=== PATIENT | female | born 1955 | race Caucasian/White ===

== ENCOUNTER 2017-12-01 11:57 | Inpatient (IN) | payer MEDICAID ==
--- NOTE | 2017-12-01 12:45 | ED Physician Chart ---
ED Chief Complaint/HPI - Patient Information Date Seen:: 12/01/17 Time Seen:: 12:15 Chief Complaint:: Flank Pain History of Present Illness:: onset x 7 days of intermittent flank/back pain with dysuria; no report of trauma , H/As, neck pain, C/P, SOB, Abd. Pain, A/N/V/D/C, fever, chills, or bleeding Allergies:: Allergies Allergy/AdvReac Type Severity Reaction Status Date / Time No Known Allergies Allergy Verified 12/01/17 12:25 Vitals:: Vital Signs - 8 hr 12/01/17 12:15 Temp 98 F HR 69 RR 18 BP 133/64 O2 Sat % 95 Historian:: Patient, EMS Review:: Nurse's Note Reviewed, Old Chart Reviewed, EMS run form Reviewed ED Review of Systems - Review of Systems General/Constitutional: No fever, No chills, No weight loss, No weakness, No diaphoresis, No edema, No loss of appetite Skin: No skin lesions, No rash, No bruising Head: No headache, No light-headedness Eyes: No loss of vision, No pain, No diplopia ENT: No earache, No nasal drainage, No sore throat, No tinnitus Neck: No neck pain, No swelling, No thyromegaly, No stiffness, No mass noted Cardio Vascular: No chest pain, No palpitations, No PND, No orthopnea, No edema Pulmonary: No SOB, No cough, No sputum, No wheezing GI: No nausea, No vomiting, No diarrhea, No pain, No melena, No hematochezia, No constipation, No hematemesis G/U: No dysuria, No frequency, No hematuria, No nacturia 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: No vaginal discharge, No abnormal vaginal bleed, No contraction Musculoskeletal: No bone or joint pain, No back pain, No muscle pain Endocrine: No polyuria, No polydipsia Psychiatric: Prior psych history, No depression, No anxiety, No suicidal ideation, No homicidal ideation, Auditory hallucination, No visual hallucination Hematopoietic: No bruising, No lymphadenopathy Allergic/Immuno: No urticaria, No angioedema Neurological: No syncope, No focal symptoms, No weakness, No paresthesia, No headache, No seizure, No dizziness, Confusion, No vertigo ED Past Medical History - Past Medical History Obtainable: Yes Past Medical History: HTN, Thyroid disorder, Arthritis, Dementia Family History: HTN Social History: Non Smoker, No Alcohol, No Drug Use, , Care Facility Surgical History: other (Laparotomy/Abdominal Surgery) Psychiatricy History: Schizophrenia, Dementia Medication: Reviewed Family Medical History - Family Member Mother History Unknown: Yes ED Physical Exam - Physical Examination General/Constitutional: Awake, Well-developed, well-nourished, Alert, No distress, GCS 15, Non-toxic appearing, Ambulatory Head: Atraumatic Eyes: Lids, conjuctiva normal, PERRL, EOMI Skin: Nl inspection, No rash, No skin lesions, No ecchymosis, Well hydrated, No lymphadenopathy ENMT: External ears, nose nl, TM canals nl, Nasal exam nl, Lips, teeth, gums nl , Oropharynx nl, Tonsils nl Neck: Nontender, Full ROM w/o pain, No JVD, No nuchal rigidity, No bruit, No mass, No stridor Respiratory: Nl effort/Exclusion, Clear to Auscultation, No Wheeze/Rhonchi/Rales Cardio Vascular: RRR, No murmur, gallop, rubs, NL S1 S2, Carotid/Femoral/Distal pulses equal bilaterally GI: No tenderness/rebounding/guarding, No organomegaly, No hernia, Normal BS's, Nondistended, No mass/bruits, No McBurney tenderness, Rectum exam nl Other GI comments:: no pulsatile masses : No CVA tenderness Extremities: No tenderness or effusion, Full ROM, normal strength in all extremities, No edema, Normal digits & nails Neuro/Psych: Alert/oriented, DTR's symmetric, Normal sensory exam, Normal motor strength, Judgement/insight normal, Mood normal, Normal gait, No focal deficits Misc: Normal back, No paraspinal tenderness ED Labs/Radiology/EKG Results - Lab Results Comments:: Na+ 132; K+: 3.3; U/A: + WBCs; + Bacteria - EKG Interpretations EKG Time:: 12:41 Rate & Rhythm: 66; NSR Comments:: non-specific st-t changes ED Septic Shock - . Is Septic Shock (SBP<90, OR Lactate>4 mmol\L) present?: No - <6hrs of presentation: Vital Signs: Vital Signs - 8 hr 12/01/17 12:15 Temp 98 F HR 69 RR 18 BP 133/64 O2 Sat % 95 ED Reassessment (Disposition) - Reassessment Reassessment Condition:: Improved - Diagnosis Diagnosis:: UTI; Flank Pain; Hyponatremia; Hypokalemia; Dehydration; Back Pain - Aftercare/Follow up Instructions Aftercare/Follow-Up Instructions:: Counseled pt regarding lab results/diagnosis & need follow up, Counseled pt & family regarding lab results/diagnosis & need follow up - Patient Disposition Discharge/Transfer:: Acute Care w/in this hosp Accepting Physician:: Dr. De Los Santos Time Called:: 1400 Time Responded:: 14:00 Admitted to:: Med/Surg Spoke to:: Dr. De Los Santos Admitting Medical Physician:: Dr. De Los Santos Condition at Disposition:: Stable, Improved
[2017-12-01 13:23] LABS: % BASOPHILS 1.1 % (0.0-2.0); % EOSINOPHILS 6.2 % (0.0-5.0); % LYMPHOCYTES 19.8 % (20.0-50.0); % MONOCYTES 8.7 % (2.0-10.0); % NEUTROPHILS 64.2 % (40.0-80.0); BASOPHILE ABSOLUTE 0.1 Th/cumm (0-0.2); EOSINOPHILE ABSOLUTE 0.5 Th/cmm (0.1-0.4); HEMATOCRIT 36.8 % (41.0-60); HEMOGLOBIN 12.2 gm/dL (12-16); INR 1.12 (0.5-1.4); LYMPHOCYTE ABSOLUTE 1.5 Th/cmm (1.5-3.0); MEAN CELL VOLUME 84.1 fl (81-100); MEAN CORPUSCULAR HGB CONC 33.2 pg (28.0-36.0); MEAN PLATELET VOLUME 7.1 fl; MONOCYTE ABSOLUTE 0.6 Th/cmm (0.3-1.0); NEUTROPHILE ABSOLUTE 4.7 Th/cmm (1.8-8.0); PLATELET COUNT 269 Th/cmm (150-400); PROTHROMBIN TIME (TEST) 11.7 SECONDS (9.5-11.5); RED BLOOD COUNT 4.37 Mil/cmm (3.80-5.10); WHITE BLOOD COUNT 7.4 Th/cmm (4.8-10.8)
[2017-12-01 13:29] LABS: ALB/GLOB RATIO 1.1 (1.0-1.8); ALBUMIN 3.9 gm/dL (3.7-5.3); ALKALINE PHOSPHATASE 134 U/L (34-104); ANION GAP 9.9 (7.0-16.0); BILIRUBIN,TOTAL 0.8 mg/dL (0.3-1.0); BUN - UREA NITROGEN 10 mg/dL (7-25); CALCIUM SERUM 9.7 mg/dL (8.6-10.3); CARBON DIOXIDE 26.4 mEq/L (21.0-31.0); CHLORIDE 99 mEq/L (98-107); CREATININE - SERUM 0.7 mg/dL (0.6-1.2); CREATININE KINASE 132 U/L (30-223); GFR AFRICAN-AMERICAN > 60.0 ml/min (>90); GFR NON AFRICAN-AMERICAN > 60.0 ml/min; GLUCOSE 99 mg/dL (70-105); POTASSIUM SERUM 3.3 mEq/L (3.5-5.1); SGOT 19 U/L (13-39); SGPT/ALT 10 U/L (7-52); SODIUM SERUM 132 mEq/L (136-145); TOTAL PROTEIN,SERUM 7.5 gm/dL (6.0-8.3)
[2017-12-01 13:33] LABS: TROP I < 0.01 ng/mL (0.01-0.05)
[2017-12-01] MEDS ORDERED: Potassium Chloride 20 mEq ER Tab PO ONE ×2 (14:03→14:29)
[2017-12-01 14:19] LABS: URINE MICROSCOPIC INDICATED? YES; URINE SOURCE MIDSTREAM
[2017-12-01] MEDS ORDERED: cefTRIAXone 1 GM in Sodium Chloride 0.9% 50 ML IV ONE (14:21)
[2017-12-01 14:22] LABS: URINE BILIRUBIN NEGATIVE (NEGATIVE); URINE BLOOD NEGATIVE (NEGATIVE); URINE GLUCOSE (UA) NEGATIVE (NEGATIVE); URINE KETONE NEGATIVE (NEGATIVE); URINE LEUKOCYTE ESTERASE NEGATIVE (NEGATIVE); URINE NITRATE NEGATIVE (NEGATIVE); URINE PROTEIN NEGATIVE (NEGATIVE); URINE UROBILINOGEN 0.2 E.U./dL (0.2 - 1.0)
[2017-12-01 14:40] LABS: URINE CLARITY CLEAR (CLEAR); URINE COLOR YELLOW
[2017-12-01 14:43] LABS: URINE BACTERIA FEW /hpf (NONE SEEN); URINE EPITHELIAL CELLS MODERATE /lpf (FEW); URINE RBC 0-2 /hpf (0-5)
[2017-12-01 19:36] VITALS: BP 125/82
[2017-12-01] MEDS ORDERED: Morphine Sulfate 2 mg/mL 1mL Syr IVP PRN ×2 (19:50→19:51)
--- NOTE | 2017-12-01 22:27 | History & Physical ---
ADMIT DATE: 12/01/2017 This patient was admitted from the Emergency Room for a history of intermittent flank pain, back pain, dysuria with UTI and possible sepsis. The patient had , the patient has about this for 7 days, complaining of body aches and pains and having fever and chills. Nurse's notes were reviewed. Old chart was reviewed and patient basically has some fever and also dysuria. All other symptom review was negative. PAST MEDICAL HISTORY: The patient has history of hypertension, thyroid disorder, arthritis and the patient also has history of dementia. The patient has been forgetful. PHYSICAL EXAMINATION: HEENT: Normocephalic. Pupils equal, reactive to light. NECK: Supple, nontender. LUNGS: Clear. CARDIOVASCULAR SYSTEM: S1, S2 heard. ABDOMEN: Soft. Bowel sounds are heard. CENTRAL NERVOUS SYSTEM: Grossly normal. LABORATORY DATA: The patient's sodium was low at 132, WBC was there, bacteria was there. DIAGNOSES: Urinary tract infection, sepsis, flank pain, hyponatremia, hypokalemia, dehydration, acute kidney injury, history of back pain, history of hypertension, history of thyroid disorder, arthritis, dementia. PLAN: The patient is being admitted. IV antibiotic given and I will have Dr. Whitlock see the patient as well as her Neurology see the patient. I will follow the patient. JOB# [id number]
[2017-12-02 07:29] LABS: ANION GAP 10.1 (7.0-16.0); BUN - UREA NITROGEN 15 mg/dL (7-25); CALCIUM SERUM 8.7 mg/dL (8.6-10.3); CARBON DIOXIDE 23.6 mEq/L (21.0-31.0); CHLORIDE 101 mEq/L (98-107); CREATININE - SERUM 0.7 mg/dL (0.6-1.2); GFR AFRICAN-AMERICAN > 60.0 ml/min (>90); GFR NON AFRICAN-AMERICAN > 60.0 ml/min; GLUCOSE 87 mg/dL (70-105); POTASSIUM SERUM 3.7 mEq/L (3.5-5.1); SODIUM SERUM 131 mEq/L (136-145)
[2017-12-02 07:38] LABS: % BASOPHILS 1.8 % (0.0-2.0); % EOSINOPHILS 8.9 % (0.0-5.0); % LYMPHOCYTES 25.5 % (20.0-50.0); % MONOCYTES 10.1 % (2.0-10.0); % NEUTROPHILS 53.7 % (40.0-80.0); BASOPHILE ABSOLUTE 0.1 Th/cumm (0-0.2); EOSINOPHILE ABSOLUTE 0.5 Th/cmm (0.1-0.4); HEMOGLOBIN 10.6 gm/dL (12-16); LYMPHOCYTE ABSOLUTE 1.6 Th/cmm (1.5-3.0); MEAN CORPUSCULAR HEMOGLOBIN 27.6 pg (27.0-31.0); MEAN CORPUSCULAR HGB CONC 33.2 pg (28.0-36.0); MEAN PLATELET VOLUME 7.5 fl; MONOCYTE ABSOLUTE 0.6 Th/cmm (0.3-1.0); NEUTROPHILE ABSOLUTE 3.3 Th/cmm (1.8-8.0); PLATELET COUNT 234 Th/cmm (150-400); RED BLOOD COUNT 3.86 Mil/cmm (3.80-5.10); RED CELL DISTRIBUTION WIDTH 14.8 % (11.5-20.0); WHITE BLOOD COUNT 6.1 Th/cmm (4.8-10.8)
[2017-12-02] MEDS: Levothyroxine 0.05 Mg Tab PO SCH (08:26)
--- NOTE | 2017-12-02 15:46 | General Progress Note ---
Subjective - Review of Systems Service Date: 12/02/17 Subjective: wake and alert stable denies pain Objective - Results Result Diagrams: 12/02/17 05:45 12/02/17 05:45 Recent Labs: Laboratory Last Values WBC 6.1 Th/cmm (4.8-10.8) 12/02/17 05:45 RBC 3.86 Mil/cmm (3.80-5.10) 12/02/17 05:45 Hgb 10.6 gm/dL (12-16) L 12/02/17 05:45 Hct 32.0 % (41.0-60) L 12/02/17 05:45 MCV 83.0 fl (81-100) 12/02/17 05:45 MCH 27.6 pg (27.0-31.0) 12/02/17 05:45 MCHC Differential 33.2 pg (28.0-36.0) 12/02/17 05:45 RDW 14.8 % (11.5-20.0) 12/02/17 05:45 Plt Count 234 Th/cmm (150-400) 12/02/17 05:45 MPV 7.5 fl 12/02/17 05:45 Neutrophils % 53.7 % (40.0-80.0) 12/02/17 05:45 Lymphocytes % 25.5 % (20.0-50.0) 12/02/17 05:45 Monocytes % 10.1 % (2.0-10.0) H 12/02/17 05:45 Eosinophils % 8.9 % (0.0-5.0) H 12/02/17 05:45 Basophils % 1.8 % (0.0-2.0) 12/02/17 05:45 PT 11.7 SECONDS (9.5-11.5) H 12/01/17 13:00 INR 1.12 (0.5-1.4) 12/01/17 13:00 PTT (Actin FS) 23.9 SECONDS (26.0-38.0) L 12/01/17 13:00 Sodium 131 mEq/L (136-145) L 12/02/17 05:45 Potassium 3.7 mEq/L (3.5-5.1) 12/02/17 05:45 Chloride 101 mEq/L (98-107) 12/02/17 05:45 Carbon Dioxide 23.6 mEq/L (21.0-31.0) 12/02/17 05:45 Anion Gap 10.1 (7.0-16.0) 12/02/17 05:45 BUN 15 mg/dL (7-25) 12/02/17 05:45 Creatinine 0.7 mg/dL (0.6-1.2) 12/02/17 05:45 Est GFR ( Amer) > 60.0 ml/min (>90) 12/02/17 05:45 Est GFR (Non-Af Amer) > 60.0 ml/min 12/02/17 05:45 BUN/Creatinine Ratio 21.4 12/02/17 05:45 Glucose 87 mg/dL (70-105) 12/02/17 05:45 Whole Bld Lactic Acid 1.44 mmol/L (0.60-1.99) 12/01/17 13:00 Calcium 8.7 mg/dL (8.6-10.3) 12/02/17 05:45 Total Bilirubin 0.8 mg/dL (0.3-1.0) 12/01/17 13:00 AST 19 U/L (13-39) 12/01/17 13:00 ALT 10 U/L (7-52) 12/01/17 13:00 Alkaline Phosphatase 134 U/L (34-104) H 12/01/17 13:00 Creatine Kinase 132 U/L (30-223) 12/01/17 13:00 Troponin I < 0.01 ng/mL (0.01-0.05) L 12/01/17 13:00 Total Protein 7.5 gm/dL (6.0-8.3) 12/01/17 13:00 Albumin 3.9 gm/dL (3.7-5.3) 12/01/17 13:00 Globulin 3.6 gm/dL 12/01/17 13:00 Albumin/Globulin Ratio 1.1 (1.0-1.8) 12/01/17 13:00 Urine Source MIDSTREAM 12/01/17 14:10 Urine Color YELLOW 12/01/17 14:10 Urine Clarity CLEAR (CLEAR) 12/01/17 14:10 Urine pH 7.0 (4.6 - 8.0) 12/01/17 14:10 Ur Specific [place] 1.015 (1.005-1.030) 12/01/17 14:10 Urine Protein NEGATIVE mg/dL (NEGATIVE) 12/01/17 14:10 Urine Glucose (UA) NEGATIVE mg/dL (NEGATIVE) 12/01/17 14:10 Urine Ketones NEGATIVE mg/dL (NEGATIVE) 12/01/17 14:10 Urine Blood NEGATIVE (NEGATIVE) 12/01/17 14:10 Urine Nitrate NEGATIVE (NEGATIVE) 12/01/17 14:10 Urine Bilirubin NEGATIVE (NEGATIVE) 12/01/17 14:10 Urine Urobilinogen 0.2 E.U./dL (0.2 - 1.0) 12/01/17 14:10 Ur Leukocyte Esterase NEGATIVE (NEGATIVE) 12/01/17 14:10 Urine RBC 0-2 /hpf (0-5) 12/01/17 14:10 Urine WBC 2-5 /hpf (0-5) 12/01/17 14:10 Ur Epithelial Cells MODERATE /lpf (FEW) 12/01/17 14:10 Urine Bacteria FEW /hpf (NONE SEEN) 12/01/17 14:10 - Physical Exam Vitals and I&O: Vital Signs Temp 98.3 F 12/02/17 11:38 Pulse 72 12/02/17 11:38 Resp 18 12/02/17 11:38 BP 132/59 12/02/17 11:38 Pulse Ox 97 12/02/17 11:38 Intake & Output 12/01/17 12/02/17 12/02/17 18:59 06:59 18:59 Intake Total 150 400 Balance 150 400 Weight (lbs) 79.379 kg 78.925 kg Intake: Oral 150 400 Other: # Voids 3 1 # Bowel Movements 0 1 Weight Source Patient stated Patient stated Active Medications: Current Medications Calcium Carbonate (Os-Curt) 500 mg PO DAILY [facility] Stop: 01/31/18 08:59 Last Admin: 12/02/17 08:26 Dose: 500 mg Carbamazepine (Tegretol) 200 mg PO BID [facility]; Protocol Stop: 01/31/18 08:59 Last Admin: 12/02/17 08:26 Dose: 200 mg Galantamine Hydrobromide (Razadyne) 8 mg PO BID [facility] Stop: 01/31/18 08:59 Last Admin: 12/02/17 08:28 Dose: 8 mg Hydrochlorothiazide (Hctz) 25 mg PO DAILY [facility] Stop: 01/31/18 08:59 Last Admin: 12/02/17 08:25 Dose: Not Given Levothyroxine Sodium (Synthroid) 0.05 mg PO DAILY [facility] Stop: 01/31/18 08:59 Last Admin: 12/02/17 08:26 Dose: 0.05 mg Morphine Sulfate (Morphine) 1 mg IVP Q4HR PRN PRN Reason: Pain (Moderate) Stop: 01/30/18 19:49 Last Admin: 12/01/17 20:39 Dose: 1 mg Morphine Sulfate (Morphine) 2 mg IVP Q4HR PRN PRN Reason: Pain (Severe) Stop: 01/30/18 19:50 Ondansetron HCl (Zofran) 4 mg IV Q6H PRN PRN Reason: Nausea / Vomiting Stop: 01/30/18 19:50 Quetiapine Fumarate (Seroquel) 25 mg PO HS [facility]; Protocol Stop: 01/30/18 20:59 Last Admin: 12/01/17 20:39 Dose: 25 mg General: Alert, No acute distress Cardiovascular: Regular rate, Normal S1, Normal S2 Abdomen: Bowel sounds - Procedures Procedures: Procedures Procedure Code Date INJECT/INFUSE NEC 99.29 02/02/11 Assessment/Plan - Assessment Assessment: dehydration uti back pain flank pain hypokalemia - Plan Plan: monitor vitals cpm Nutritional Asmnt/Malnutr-PDOC - Dietary Evaluation Malnutrition Findings (Please click <Entered> for more info): Nutritional Asmnt/Malnutrition Start: 12/02/17 13: 43 Text: Status: Complete Freq: Protocol: Document 12/02/17 13:43 LCHENG (Rec: 12/02/17 13:51 [email or web address]) Nutritional Asmnt/Malnutrition Patient General Information Nutritional Screening High Risk Diagnosis FTT, UTI Pertinent Medical Hx/Surgical Hx THN, thyroid disorder, arthritis, dementia, schizophrenia, abdominal surgery Subjective Information Pt seen sitting up in bed at time of visit, eating well be herself. Pt stated appetite is fine. Current Diet Order/ Nutrition Support regular Pertinent Medications os-curt, synthroid, seroquel Pertinent Labs 12/02 Na 131 Nutritional Hx/Data Height 1.55 m Height (Calculated Centimeters) 154.9 Current Weight (lbs) 78.925 kg Weight (Calculated Kilograms) 78.9 Weight (Calculated Grams) 86543.1 [place] Body Weight 105 Body Mass Index (BMI) 32.8 Weight Status Obese GI Symptoms GI Symptoms None Last BM 6/7 Difficult in: None Skin Integrity/Comment: intact Estimated Nutritional Goals BEE in Kcals: Adj wt of IBW Calories/Kcals/Kg 25-30 Kcals Calculated 4025-4896 Protein: Adj wt of IBW Protein g/k Protein Calculated 55 Fluid: ml 1375-1650ml (1ml/kcal) Nutritional Problem 1. Problem Problem altered nutrition related lab Etiology electrolyte imbalance Signs/Symptoms: Na 131-132 Malnutrition Alert Is there a minimum of two criteria No selected? Query Text:Check all the applicable criteria. A minimum of two criteria are recommended for diagnosis of either severe or non-severe malnutrition. Malnutrition Related to Morbid Obesity Malnutrition related to morbid obesity No Intervention/Recommendation Comments 1. Continue with regular diet as ordered. 2. Monitor PO intake, wt, labs and skin integrity 3. F/U as moderate risk in 3-5 days, 12/05-12/07, PO check 12/04 Expected Outcomes/Goals Expected Outcomes/Goals 1. PO intake to meet at least 75% of nutritional needs. 2. Wt stability, skin to remain intact, labs to approach WNL.
--- NOTE | 2017-12-03 02:28 | Consultation ---
DATE OF CONSULTATION: 12/02/2017 INFECTIOUS DISEASE CONSULTATION REFERRING PHYSICIAN: Dr. De Los Santos. REASON FOR CONSULTATION: UTI. HISTORY OF PRESENT ILLNESS: The patient is a 62-year-old female with a past medical history of hypertension, hypothyroidism, arthritis and dementia, brought to the ER for dysuria and flank pain. The patient has some fever and chills at the facility, but on the record, the patient has no fever at this facility. On initial evaluation, the patient's temperature was 98 degree Fahrenheit and WBC count was 7400. Urinalysis showed wbcs 2-5 and few bacteria. Urine culture showed mixed vaginal evan. Blood culture 2 sets are negative. Rocephin 1 mg was given in the ER. PAST MEDICAL HISTORY: As mentioned above, hypertension, hypothyroidism, arthritis, dementia. FAMILY HISTORY: Positive for hypertension. SOCIAL HISTORY: The patient lives at nursing facility, . No smoking, no alcohol, no drug use. PAST SURGICAL HISTORY: Includes laparotomy, abdominal surgery. PSYCHIATRIC HISTORY: Schizophrenia, dementia. MEDICATIONS: As per medication reconciliation sheet. ALLERGIES: NKDA. FAMILY HISTORY: Hypertension. Mother had hypertension. REVIEW OF SYSTEMS: GENERAL: The patient has no fever, no chills at this facility. HENT: No diplopia, no photophobia, no sore throat. RESPIRATORY: No cough, no shortness of breath. CARDIOVASCULAR: No chest pain or palpitation. GASTROINTESTINAL: No nausea, no vomiting, no diarrhea, no constipation. GENITOURINARY: The patient had dysuria, no hematuria. CENTRAL NERVOUS SYSTEM: No headache, no dizziness, no gross focal weakness. SKIN: Has no rash, no hives. PHYSICAL EXAMINATION: VITAL SIGNS: Shows temperature 97.7 degrees Fahrenheit, pulse 78, respirations 20, blood pressure 137/63. GENERAL: The patient is comfortable, lying in the bed, obese. HEENT: Head is normocephalic, atraumatic. Oral cavity moist, pink tongue. Eyes: No pallor, no icterus. Pupils PERRLA, EOMI. NECK: Supple, no JVD, no bruit. Trachea in midline. CHEST: Bilateral breath sounds. No crackles or wheezing. HEART: S1, S2 within normal limits. Regular rhythm. No murmur or gallop. ABDOMEN: Soft, nontender, nondistended. Bowel sounds present. EXTREMITIES: No cyanosis, no clubbing, no edema. NEUROLOGIC: Alert, awake, oriented x 3. LABORATORY DATA: Current lab shows WBC count is 6100, hemoglobin 10.6, hematocrit 32, platelets are 234,000, neutrophils 53.7%. INR is 1.12. Sodium is 131, potassium 3.7, chloride 101, bicarb is 24, BUN is 15, creatinine 0.7, glucose is 87. Urinalysis showed negative nitrite, negative leukocyte esterase, wbcs 2-5, few bacteria. Urine culture shows mixed vaginal evan and blood culture 2 sets are negative. IMPRESSION: 1. Suspected urinary tract infection. 2. Hyponatremia. 3. Dehydration. 4. Hypothyroidism. 5. Hypertension. RECOMMENDATIONS: We will give ciprofloxacin 250 mg p.o. twice a day for 5 days. JOB# [id number]
--- NOTE | 2017-12-03 04:10 | Consultation ---
DATE OF CONSULTATION: 12/02/2017 REASON FOR CONSULTATION: Failure to thrive. HISTORY OF PRESENT ILLNESS: This consult was obtained through the courtesy of Dr. De Los Santos for this 62-year-old with history of hypertension, hypothyroidism, arthritis, and mild dementia, admitted to the hospital for back pain, flank pain, UTI, and sepsis, now has not been eating. GI consult was called in for further evaluation. The patient is very vague in her symptoms. She does not seem she is fully aware of what is going on. She denies any abdominal pain, nausea, vomiting, diarrhea, or constipation ____ she does not know for what. At this time, she is eating okay. She ate most of her meals last night and today, there is no abdominal pain, nausea, or vomiting. PAST MEDICAL HISTORY: Hypertension, hypothyroidism, arthritis, and dementia. PAST SURGICAL HISTORY: A big abdominal scar in the midline, nature of which is not known. SOCIAL HISTORY: Nonsmoker. No alcoholic or IV drug abuser. FAMILY HISTORY: Noncontributory. ALLERGIES: No known drug allergies. MEDICATIONS: Calcium, Tegretol, Razadyne, hydrochlorothiazide, Synthroid, morphine, Zofran, and Seroquel. REVIEW OF SYSTEMS: As stated above. No weight loss, nausea, vomiting, diarrhea, constipation, or bleeding. PHYSICAL EXAMINATION: GENERAL: The patient is awake, oriented to self and place, and in no acute distress. VITAL SIGNS: Blood pressure is 130/59, heart rate 72, respiratory rate 18, and temperature is 98.3. HEAD AND NECK: Pupils are reactive to light and accommodation. Extraocular muscles could not be tested. Sclerae are anicteric. Conjunctivae not pale. Oral cavity, no lesion. NECK: Supple. CHEST: Good air entry. LUNGS: Clear to auscultation. CARDIOVASCULAR: Regular rate and rhythm. No murmur or gallop. ABDOMEN: Soft, positive bowel sounds, and not tender. EXTREMITIES: Lower extremities, no edema. CENTRAL NERVOUS SYSTEM: Nonfocal. LABORATORY DATA: H and H are 10.6 and 32.0 with the platelets of 234. Liver enzymes are normal. IMPRESSION: A 62-year-old with urinary tract infection, now with a possibility of decreased oral intake. ASSESSMENT AND PLAN: 1. Decreased oral intake, has resolved, seems to have been transient, most likely was related to infection or sepsis. At this time, the patient is eating okay, so there is no reason to do any workup, so continue to encourage oral intake and continue treatment for urinary tract infection and then further recommendations to follow. 2. Mild anemia, most likely nonspecific. We will monitor and watch for now. Other medical problems such as hypertension, hypothyroidism, dementia, etc., as per Dr. De Los Santos. Thank you, Filiberto for allowing me to participate in the care of this patient. If you have any further questions, please let me know. JOB# [id number]
[2017-12-03] MEDS: Levothyroxine 0.05 Mg Tab PO SCH (10:31)
--- NOTE | 2017-12-03 11:40 | GI Progress Note ---
Subjective - Review of Systems Service Date: 12/03/17 Events since last encounter: No events Subjective: No abdominal pain or N/V Eating OK Objective - Results Result Diagrams: 12/02/17 05:45 12/02/17 05:45 Recent Labs: Laboratory Last Values WBC 6.1 Th/cmm (4.8-10.8) 12/02/17 05:45 RBC 3.86 Mil/cmm (3.80-5.10) 12/02/17 05:45 Hgb 10.6 gm/dL (12-16) L 12/02/17 05:45 Hct 32.0 % (41.0-60) L 12/02/17 05:45 MCV 83.0 fl (81-100) 12/02/17 05:45 MCH 27.6 pg (27.0-31.0) 12/02/17 05:45 MCHC Differential 33.2 pg (28.0-36.0) 12/02/17 05:45 RDW 14.8 % (11.5-20.0) 12/02/17 05:45 Plt Count 234 Th/cmm (150-400) 12/02/17 05:45 MPV 7.5 fl 12/02/17 05:45 Neutrophils % 53.7 % (40.0-80.0) 12/02/17 05:45 Lymphocytes % 25.5 % (20.0-50.0) 12/02/17 05:45 Monocytes % 10.1 % (2.0-10.0) H 12/02/17 05:45 Eosinophils % 8.9 % (0.0-5.0) H 12/02/17 05:45 Basophils % 1.8 % (0.0-2.0) 12/02/17 05:45 PT 11.7 SECONDS (9.5-11.5) H 12/01/17 13:00 INR 1.12 (0.5-1.4) 12/01/17 13:00 PTT (Actin FS) 23.9 SECONDS (26.0-38.0) L 12/01/17 13:00 Sodium 131 mEq/L (136-145) L 12/02/17 05:45 Potassium 3.7 mEq/L (3.5-5.1) 12/02/17 05:45 Chloride 101 mEq/L (98-107) 12/02/17 05:45 Carbon Dioxide 23.6 mEq/L (21.0-31.0) 12/02/17 05:45 Anion Gap 10.1 (7.0-16.0) 12/02/17 05:45 BUN 15 mg/dL (7-25) 12/02/17 05:45 Creatinine 0.7 mg/dL (0.6-1.2) 12/02/17 05:45 Est GFR ( Amer) > 60.0 ml/min (>90) 12/02/17 05:45 Est GFR (Non-Af Amer) > 60.0 ml/min 12/02/17 05:45 BUN/Creatinine Ratio 21.4 12/02/17 05:45 Glucose 87 mg/dL (70-105) 12/02/17 05:45 Whole Bld Lactic Acid 1.44 mmol/L (0.60-1.99) 12/01/17 13:00 Calcium 8.7 mg/dL (8.6-10.3) 12/02/17 05:45 Total Bilirubin 0.8 mg/dL (0.3-1.0) 12/01/17 13:00 AST 19 U/L (13-39) 12/01/17 13:00 ALT 10 U/L (7-52) 12/01/17 13:00 Alkaline Phosphatase 134 U/L (34-104) H 12/01/17 13:00 Creatine Kinase 132 U/L (30-223) 12/01/17 13:00 Troponin I < 0.01 ng/mL (0.01-0.05) L 12/01/17 13:00 Total Protein 7.5 gm/dL (6.0-8.3) 12/01/17 13:00 Albumin 3.9 gm/dL (3.7-5.3) 12/01/17 13:00 Globulin 3.6 gm/dL 12/01/17 13:00 Albumin/Globulin Ratio 1.1 (1.0-1.8) 12/01/17 13:00 Urine Source MIDSTREAM 12/01/17 14:10 Urine Color YELLOW 12/01/17 14:10 Urine Clarity CLEAR (CLEAR) 12/01/17 14:10 Urine pH 7.0 (4.6 - 8.0) 12/01/17 14:10 Ur Specific [place] 1.015 (1.005-1.030) 12/01/17 14:10 Urine Protein NEGATIVE mg/dL (NEGATIVE) 12/01/17 14:10 Urine Glucose (UA) NEGATIVE mg/dL (NEGATIVE) 12/01/17 14:10 Urine Ketones NEGATIVE mg/dL (NEGATIVE) 12/01/17 14:10 Urine Blood NEGATIVE (NEGATIVE) 12/01/17 14:10 Urine Nitrate NEGATIVE (NEGATIVE) 12/01/17 14:10 Urine Bilirubin NEGATIVE (NEGATIVE) 12/01/17 14:10 Urine Urobilinogen 0.2 E.U./dL (0.2 - 1.0) 12/01/17 14:10 Ur Leukocyte Esterase NEGATIVE (NEGATIVE) 12/01/17 14:10 Urine RBC 0-2 /hpf (0-5) 12/01/17 14:10 Urine WBC 2-5 /hpf (0-5) 12/01/17 14:10 Ur Epithelial Cells MODERATE /lpf (FEW) 12/01/17 14:10 Urine Bacteria FEW /hpf (NONE SEEN) 12/01/17 14:10 - Physical Exam Vitals and I&O: Vital Signs Temp 97.9 F 12/03/17 09:33 Pulse 68 12/03/17 09:33 Resp 17 12/03/17 09:33 BP 109/59 12/03/17 10:33 Pulse Ox 96 12/03/17 09:33 Intake & Output 12/02/17 12/03/17 12/03/17 18:59 06:59 18:59 Intake Total 1020 Balance 1020 Weight (lbs) 78.199 kg 79.379 kg Intake: Oral 1020 Other: # Voids 3 2 # Bowel Movements 2 0 Weight Source Bedscale Bedscale Active Medications: Current Medications Calcium Carbonate (Os-Curt) 500 mg PO DAILY [facility] Stop: 01/31/18 08:59 Last Admin: 12/03/17 10:29 Dose: 500 mg Carbamazepine (Tegretol) 200 mg PO BID [facility]; Protocol Stop: 01/31/18 08:59 Last Admin: 12/03/17 10:29 Dose: 200 mg Ciprofloxacin (Cipro) 250 mg PO BID [facility] Stop: 02/01/18 08:59 Last Admin: 12/03/17 10:29 Dose: 250 mg Galantamine Hydrobromide (Razadyne) 8 mg PO BID [facility] Stop: 01/31/18 08:59 Last Admin: 12/03/17 10:35 Dose: 8 mg Hydrochlorothiazide (Hctz) 25 mg PO DAILY [facility] Stop: 01/31/18 08:59 Last Admin: 12/03/17 10:33 Dose: Not Given Levothyroxine Sodium (Synthroid) 0.05 mg PO DAILY [facility] Stop: 01/31/18 08:59 Last Admin: 12/03/17 10:31 Dose: 0.05 mg Morphine Sulfate (Morphine) 1 mg IVP Q4HR PRN PRN Reason: Pain (Moderate) Stop: 01/30/18 19:49 Last Admin: 12/01/17 20:39 Dose: 1 mg Morphine Sulfate (Morphine) 2 mg IVP Q4HR PRN PRN Reason: Pain (Severe) Stop: 01/30/18 19:50 Ondansetron HCl (Zofran) 4 mg IV Q6H PRN PRN Reason: Nausea / Vomiting Stop: 01/30/18 19:50 Quetiapine Fumarate (Seroquel) 25 mg PO HS [facility]; Protocol Stop: 01/30/18 20:59 Last Admin: 12/02/17 21:26 Dose: 25 mg General: Alert, No acute distress Cardiovascular: Regular rate, Normal S1, Normal S2 Abdomen: Bowel sounds, Soft - Procedures Procedures: Procedures Procedure Code Date INJECT/INFUSE NEC 99.29 02/02/11 Assessment/Plan - Assessment Assessment: Failure to thrive N/V - Plan Plan: 1. Failure to thrive Resolved 2. Nausea and vomiting Resolved
== END 2017-12-03 17:15 | DRG 720 ==
LOC: ER 11:57 → MSI 14:53
PROVIDERS: ADMIT Internal Medicine; ATTEND Internal Medicine
DX: A41.9 Sepsis, unspecified organism (principal); N17.9 Acute kidney failure, unspecified; F03.90 Unspecified dementia, unspecified severity, without behavioral disturbance, psychotic disturbance, mood disturbance, and anxiety; E87.1 Hypo-osmolality and hyponatremia; F20.9 Schizophrenia, unspecified; N39.0 Urinary tract infection, site not specified; E86.0 Dehydration; R62.7 Adult failure to thrive; E03.9 Hypothyroidism, unspecified; D64.9 Anemia, unspecified; E87.6 Hypokalemia; I10 Essential (primary) hypertension; M19.90 Unspecified osteoarthritis, unspecified site; Z82.49 Family history of ischemic heart disease and other diseases of the circulatory system; Z71.89 Other specified counseling; Z79.899 Other long term (current) drug therapy
CPT/HCPCS: 36415-UA; 80048-TC; 80053-TC; 81001-TC; 82550-TC; 83605; 84484-TC; 85025-TC; 85610-TC; 85730-TC; 87086-90; 93005; J0696; J2270; Z7610